=== PATIENT | male | born 1960 | race Caucasian/White ===

== ENCOUNTER 2019-02-17 09:17 | Emergency (ER) | payer OTHER ==
[2019-02-17] MEDS ORDERED: ALBUTEROL NEBULIZED 2.5 MG/3 ML INHALATION STA (09:35)
--- NOTE | 2019-02-17 09:38 | ED ---
Chest Pain HPI - General Chief Complaint: Chest Pain Stated Complaint: [facility] - chemical exposure Time Seen by Provider: 02/17/19 09:28 Source: patient, RN notes reviewed Mode of arrival: ambulatory Limitations: no limitations - History of Present Illness Initial Comments: This a 58-year-old male presents emergency Department with chief complaint of chest pain or shortness of breath. Patient states symptoms started 2 days ago in which he associates this with inhalation of dust at work. He states at that time he did have some onset of chest discomfort as he drove to an area [place]. Patient states that that the symptoms have persisted and worsened and which she has more discomfort. Patient states pains and left side of his chest that radiates into his left axilla region. Patient states that he is nonproductive and regular basis he does take omeprazole for GERD denies any history of hypertension, hyperlipidemia, diabetes or prior cardiac disease. Patient states that he can press on his chest and reproduce discomfort. Patient denies any nausea vomiting diarrhea constipation. Denies any fevers or chills. Denies productive cough. - Related Data Home Medications Medication Instructions Recorded Confirmed Omeprazole [PriLOSEC] 20 mg PO AC-BRKFST 02/17/19 02/17/19 Previous Rx's Medication Instructions Recorded Albuterol Sulfate [Proair Hfa] 1 - 2 puff INHALATION Q4HR PRN #1 02/17/19 inhaler predniSONE 50 mg PO DAILY #4 tab 02/17/19 Allergies Allergy/AdvReac Type Severity Reaction Status Date / Time No Known Allergies Allergy Verified 02/17/19 09:59 Review of Systems ROS Statement: Those systems with pertinent positive or pertinent negative responses have been documented in the HPI. ROS Other: All systems not noted in ROS Statement are negative. EKG Findings - EKG Comments: EKG Findings:: EKG performed at 9:39 normal sinus rhythm with a rate of 67 TN 160 QRS 78 QT/QTc/431 Past Medical History Past Medical History: GERD/Reflux History of Any Multi-Drug Resistant Organisms: None Reported Past Surgical History: Tonsillectomy Additional Past Surgical History / Comment(s): SINUS SURGERY Past Psychological History: No Psychological Hx Reported Smoking Status: Never smoker Past Alcohol Use History: None Reported Past Drug Use History: None Reported General Exam Limitations: no limitations General appearance: alert, in no apparent distress Head exam: Present: atraumatic, normocephalic, normal inspection Eye exam: Present: normal appearance, PERRL, EOMI. Absent: scleral icterus, conjunctival injection, periorbital swelling ENT exam: Present: normal exam, mucous membranes moist Neck exam: Present: normal inspection, full ROM. Absent: tenderness, meningismus, lymphadenopathy Respiratory exam: Present: wheezes (faint expiratory wheeze). Absent: normal lung sounds bilaterally, respiratory distress, rales, rhonchi, stridor Cardiovascular Exam: Present: regular rate, normal rhythm, normal heart sounds. Absent: systolic murmur, diastolic murmur, rubs, gallop, clicks Neurological exam: Present: alert Skin exam: Present: warm, dry, intact, normal color. Absent: rash Course Vital Signs 02/17/19 02/17/19 02/17/19 09:21 10:03 10:25 Temperature 98.4 F Pulse Rate 65 60 Respiratory 16 16 Rate Blood Pressure 188/99 O2 Sat by Pulse 100 Oximetry 02/17/19 02/17/19 10:36 11:13 Temperature Pulse Rate 70 76 Respiratory 15 Rate Blood Pressure 163/80 O2 Sat by Pulse 100 Oximetry Chest Pain MDM - MDM 58-year-old male present emergency from for chest pain shortness of breath. Patient lab work, EKG, chest x-ray. Patient was given albuterol treatment which improved his symptoms. Patient symptoms started after inhaling dust at work. This is felt to be related to chemical or airborne exposure. Patient will be discharged with pro-air inhaler and prednisone. Patient follow-up with [facility] and return for any worsening symptoms. Disposition Clinical Impression: Atypical chest pain, Bronchospasm Disposition: HOME SELF-CARE Condition: Stable Instructions (If sedation given, give patient instructions): Bronchospasm (ED) Additional Instructions: Please return to the Emergency Department if symptoms worsen or any other concerns. Prescriptions: predniSONE 50 mg PO DAILY #4 tab Albuterol Sulfate [Proair Hfa] 1 - 2 puff INHALATION Q4HR PRN #1 inhaler PRN Reason: difficulty in breathing Is patient prescribed a controlled substance at d/c from ED?: No Referrals: Yong Brink MD [Primary Care Provider] - 1-2 days Time of Disposition: 11:47
[2019-02-17 10:32] LABS: Basophils % (A) 1 %; Eosinophils # (A) 0.2 k/uL (0-0.7); Eosinophils % (A) 4 %; HCT 47.5 % (39.0-53.0); HGB 15.5 gm/dL (13.0-17.5); Lymphocytes # (A) 1.4 k/uL (1.0-4.8); Lymphocytes % (A) 27 %; MCH 30.6 pg (25.0-35.0); MCHC 32.5 g/dL (31.0-37.0); Mean Platelet Volume 7.2; Monocytes # (A) 0.3 k/uL (0-1.0); Monocytes % (A) 6 %; Neutrophils % (A) 60 %; Platelet Count 194 k/uL (150-450); RBC 5.06 m/uL (4.30-5.90); RDW 12.6 % (11.5-15.5); WBC 5.1 k/uL (3.8-10.6)
--- NOTE | 2019-02-17 10:43 | XR ---
EXAMINATION TYPE: XR chest 2V DATE OF EXAM: 02/17/2019 COMPARISON: NONE HISTORY: Chest pain and shortness of breath TECHNIQUE: Frontal and lateral views of the chest are obtained. FINDINGS: There are overlying cardiac leads. There is no focal air space opacity, pleural effusion, o r pneumothorax seen. The cardiac silhouette size is within normal limits. The osseous structures a re intact. IMPRESSION: No acute cardiopulmonary process.
[2019-02-17 10:44] LABS: ALT 35 U/L (21-72); AST 22 U/L (17-59); Albumin 4.4 g/dL (3.5-5.0); Alkaline Phosphatase 51 U/L (38-126); Anion Gap 7 mmol/L; Blood Urea Nitrogen 15 mg/dL (9-20); Calcium 9.8 mg/dL (8.4-10.2); Carbon Dioxide 28 mmol/L (22-30); Chloride 106 mmol/L (98-107); Glucose 87 mg/dL (74-99); Magnesium 2.1 mg/dL (1.6-2.3); Potassium 4.2 mmol/L (3.5-5.1); Sodium 141 mmol/L (137-145); Total Bilirubin 0.7 mg/dL (0.2-1.3); Total Protein 7.1 g/dL (6.3-8.2)
[2019-02-17 10:47] LABS: D-Dimer 0.39 mg/L FEU (<0.60); Partial Thromboplastin Time 24.4 sec (22.0-30.0); Prothrombin Time 10.3 sec (9.0-12.0)
[2019-02-17] MEDS ORDERED: methylPREDNISolone SOD SUCCI 125 MG/2 ML VIAL IV STA (11:44)
[2019-02-17] MEDS ORDERED: METOPROLOL TARTRATE 5 MG/5 ML VIAL IVP STA (12:03)
[2019-02-17 12:15] VITALS: BP 150/75; PULSE 65; RESP 16; TEMP 98.2
== END 2019-02-17 11:58 | disposition home or self-care (01) ==
LOC: EC 09:17
DX: J98.01 Acute bronchospasm (principal); K21.9 Gastro-esophageal reflux disease without esophagitis; Z79.899 Other long term (current) drug therapy; Z77.098 Contact with and (suspected) exposure to other hazardous, chiefly nonmedicinal, chemicals; X58.XXXA Exposure to other specified factors, initial encounter; Y92.69 Other specified industrial and construction area as the place of occurrence of the external cause; Y99.0 Civilian activity done for income or pay
CPT/HCPCS: 36415; 94640; 93005; 85379; 80053; 83735; 84484; 85025; 85610; 85730; 71046; 99284; 96374; J2930

== ENCOUNTER 2019-02-19 10:51 | Observation (INO) | payer OTHER ==
[2019-02-19 11:26] LABS: Basophils % (A) 0 %; Eosinophils % (A) 1 %; HCT 45.5 % (39.0-53.0); HGB 14.8 gm/dL (13.0-17.5); Lymphocytes # (A) 0.8 k/uL (1.0-4.8); Lymphocytes % (A) 12 %; MCHC 32.4 g/dL (31.0-37.0); MCV 92.6 fL (80.0-100.0); Mean Platelet Volume 7.3; Monocytes # (A) 0.1 k/uL (0-1.0); Monocytes % (A) 2 %; Neutrophils # (A) 5.1 k/uL (1.3-7.7); Neutrophils % (A) 84 %; Platelet Count 176 k/uL (150-450); RBC 4.91 m/uL (4.30-5.90); RDW 12.6 % (11.5-15.5); WBC 6.1 k/uL (3.8-10.6)
[2019-02-19 11:29] LABS: Albumin 4.6 g/dL (3.5-5.0); Anion Gap 8 mmol/L; Blood Urea Nitrogen 24 mg/dL (9-20); Calcium 9.9 mg/dL (8.4-10.2); Carbon Dioxide 25 mmol/L (22-30); Chloride 108 mmol/L (98-107); Glucose 132 mg/dL (74-99); Sodium 141 mmol/L (137-145); Total Bilirubin 0.6 mg/dL (0.2-1.3); Total Protein 7.4 g/dL (6.3-8.2)
[2019-02-19 11:30] LABS: ALT 37 U/L (21-72); AST 39 U/L (17-59); Alkaline Phosphatase 44 U/L (38-126); Magnesium 2.2 mg/dL (1.6-2.3); Potassium 4.6 mmol/L (3.5-5.1)
--- NOTE | 2019-02-19 11:46 | ED ---
General Adult HPI - General Chief complaint: Chest Pain Stated complaint: CHEST PAIN Time Seen by Provider: 02/19/19 10:53 Source: patient, EMS, RN notes reviewed, old records reviewed Mode of arrival: EMS Limitations: no limitations - History of Present Illness Initial comments: 58-year-old male presenting with left-sided chest pain. Patient has had i ntermittent chest pain dyspnea over the past one week. Symptoms initially began after inhalation of an unknown dust at work. He had some cough associated with this. He was diagnosed with bronchospasm treated with albuterol and steroids. Today he developed worsening left-sided chest pain. Pain did radiate into the left arm. He has no known history of coronary artery disease. He does report p ersistent dyspnea over the course of the past 5 days. No vomiting or diarrhea. - Related Data Home Medications Medication Instructions Recorded Confirmed Omeprazole [PriLOSEC] 20 mg PO AC-BRKFST 02/17/19 02/19/19 Albuterol Sulfate [Proair Hfa] 1 - 2 puff INHALATION RT-Q4H PRN 02/19/19 02/19/19 Previous Rx's Medication Instructions Recorded predniSONE 50 mg PO DAILY #4 tab 02/17/19 Allergies Allergy/AdvReac Type Severity Reaction Status Date / Time No Known Allergies Allergy Verified 02/19/19 11:59 Review of Systems ROS Statement: Those systems with pertinent positive or pertinent negative responses have been documented in the HPI. ROS Other: All systems not noted in ROS Statement are negative. Past Medical History Past Medical History: GERD/Reflux History of Any Multi-Drug Resistant Organisms: None Reported Past Surgical History: Tonsillectomy Additional Past Surgical History / Comment(s): SINUS SURGERY Past Psychological History: No Psychological Hx Reported Smoking Status: Never smoker Past Alcohol Use History: None Reported Past Drug Use History: None Reported General Exam Limitations: no limitations General appearance: alert, in no apparent distress Head exam: Present: atraumatic, normocephalic Eye exam: Present: normal appearance, PERRL ENT exam: Present: normal exam Neck exam: Present: normal inspection. Absent: tenderness, meningismus Respiratory exam: Present: normal lung sounds bilaterally. Absent: respiratory distress, wheezes, rales, rhonchi Cardiovascular Exam: Present: regular rate, normal rhythm GI/Abdominal exam: Present: soft. Absent: distended, tenderness Extremities exam: Present: normal inspection, normal capillary refill. Absent: pedal edema, calf tenderness Neurological exam: Present: alert, oriented X3, CN II-XII intact. Absent: motor sensory deficit Psychiatric exam: Present: normal affect, normal mood Skin exam: Present: warm, dry, intact Course Vital Signs 02/19/19 10:53 Temperature 98.1 F Pulse Rate 68 Respiratory 16 Rate Blood Pressure 172/115 O2 Sat by Pulse 97 Oximetry EKG Findings - EKG Comments: EKG Findings:: EKG: Normal sinus rhythm, rate of 68, NV interval 174, QRS duration 72, QTC 423, no ST segment elevation or depression. Medical Decision Making - Medical Decision Making 58 yo male presenting for reevaluation of chest pain and dyspnea. Initial presentation was consistent with reactive airway disease secondary to inhalation of dust. However symptoms have progressed despite treatment with albuterol and prednisone. He has some typical features of left-sided chest pain. EKG is nonischemic. Chest x-rays negative for acute cardiopulmonary disease. Patient has negative d-dimer, negative troponin. He has a normal CBC. He will be kept in observation for serial cardiac enzymes, telemetry, and cardiology consultation. - Lab Data Result diagrams: 02/19/19 11:09 02/19/19 11:09 Lab Results 02/19/19 02/19/19 02/19/19 Range/Units 11:09 11:09 11:09 WBC 6.1 (3.8-10.6) k/uL RBC 4.91 (4.30-5.90) m/uL Hgb 14.8 (13.0-17.5) gm/dL Hct 45.5 (39.0-53.0) % MCV 92.6 (80.0-100.0) fL MCH 30.0 (25.0-35.0) pg MCHC 32.4 (31.0-37.0) g/dL RDW 12.6 (11.5-15.5) % Plt Count 176 (150-450) k/uL Neutrophils % 84 % Lymphocytes % 12 % Monocytes % 2 % Eosinophils % 1 % Basophils % 0 % Neutrophils # 5.1 (1.3-7.7) k/uL Lymphocytes # 0.8 L (1.0-4.8) k/uL Monocytes # 0.1 (0-1.0) k/uL Eosinophils # 0.0 (0-0.7) k/uL Basophils # 0.0 (0-0.2) k/uL PT (9.0-12.0) sec INR (<1.2) APTT (22.0-30.0) sec D-Dimer (<0.60) mg/L FEU Sodium 141 (137-145) mmol/L Potassium 4.6 (3.5-5.1) mmol/L Chloride 108 H (98-107) mmol/L Carbon Dioxide 25 (22-30) mmol/L Anion Gap 8 mmol/L BUN 24 H (9-20) mg/dL Creatinine 0.92 (0.66-1.25) mg/dL Est GFR (CKD-EPI)AfAm >90 (>60 ml/min/1.73 sqM) Est GFR (CKD-EPI)NonAf >90 (>60 ml/min/1.73 sqM) Glucose 132 H (74-99) mg/dL Calcium 9.9 (8.4-10.2) mg/dL Magnesium 2.2 (1.6-2.3) mg/dL Total Bilirubin 0.6 (0.2-1.3) mg/dL AST 39 (17-59) U/L ALT 37 (21-72) U/L Alkaline Phosphatase 44 (38-126) U/L Troponin I (0.000-0.034) ng/mL NT-Pro-B Natriuret Pep 127 pg/mL Total Protein 7.4 (6.3-8.2) g/dL Albumin 4.6 (3.5-5.0) g/dL 02/19/19 02/19/19 Range/Units 11:09 11:09 WBC (3.8-10.6) k/uL RBC (4.30-5.90) m/uL Hgb (13.0-17.5) gm/dL Hct (39.0-53.0) % MCV (80.0-100.0) fL MCH (25.0-35.0) pg MCHC (31.0-37.0) g/dL RDW (11.5-15.5) % Plt Count (150-450) k/uL Neutrophils % % Lymphocytes % % Monocytes % % Eosinophils % % Basophils % % Neutrophils # (1.3-7.7) k/uL Lymphocytes # (1.0-4.8) k/uL Monocytes # (0-1.0) k/uL Eosinophils # (0-0.7) k/uL Basophils # (0-0.2) k/uL PT 10.5 (9.0-12.0) sec INR 1.0 (<1.2) APTT 23.2 (22.0-30.0) sec D-Dimer 0.30 (<0.60) mg/L FEU Sodium (137-145) mmol/L Potassium (3.5-5.1) mmol/L Chloride (98-107) mmol/L Carbon Dioxide (22-30) mmol/L Anion Gap mmol/L BUN (9-20) mg/dL Creatinine (0.66-1.25) mg/dL Est GFR (CKD-EPI)AfAm (>60 ml/min/1.73 sqM) Est GFR (CKD-EPI)NonAf (>60 ml/min/1.73 sqM) Glucose (74-99) mg/dL Calcium (8.4-10.2) mg/dL Magnesium (1.6-2.3) mg/dL Total Bilirubin (0.2-1.3) mg/dL AST (17-59) U/L ALT (21-72) U/L Alkaline Phosphatase (38-126) U/L Troponin I <0.012 (0.000-0.034) ng/mL NT-Pro-B Natriuret Pep pg/mL Total Protein (6.3-8.2) g/dL Albumin (3.5-5.0) g/dL Disposition Clinical Impression: Chest pain Disposition: ADMITTED IP TO THIS [facility] Condition: Stable Is patient prescribed a controlled substance at d/c from ED?: No Referrals: Yong Brink MD [Primary Care Provider] - 1-2 days Decision to Admit Reason: Admit from EC Decision Date: 02/12/19 Decision Time: 13:51
--- NOTE | 2019-02-19 11:49 | XR ---
EXAMINATION TYPE: XR chest 2V DATE OF EXAM: 02/19/2019 COMPARISON: 02/17/2019 INDICATION: Chest pain short of breath TECHNIQUE: Frontal and lateral views of the chest are obtained. FINDINGS: The heart size is normal. The pulmonary vasculature is normal. The lungs are clear. IMPRESSION: 1. No acute pulmonary process.
[2019-02-19 12:07] LABS: D-Dimer 0.3 mg/L FEU (<0.60); Partial Thromboplastin Time 23.2 sec (22.0-30.0); Prothrombin Time 10.5 sec (9.0-12.0)
[2019-02-19] MEDS ORDERED: ASPIRIN 325 MG TAB PO STA (13:44)
[2019-02-19] MEDS ORDERED: SODIUM CHLORIDE 0.9% 1,000 ML IV SCH (13:45)
[2019-02-19] MEDS ORDERED: ACETAMINOPHEN TAB 325 MG TAB PO PRN (13:45)
[2019-02-19] MEDS ORDERED: ONDANSETRON 4 MG/2 ML VIAL IVP PRN (13:45)
[2019-02-19] MEDS ORDERED: MORPHINE SULFATE 4 MG/ML SYRINGE IV PRN (13:45)
[2019-02-19] MEDS ORDERED: NALOXONE 0.4 MG/ML 1 ML VIAL IV PRN (13:45)
[2019-02-19] MEDS ORDERED: IPRATROPIUM-ALBUTEROL 3 ML NEB INHALATION PRN (13:48)
[2019-02-19] MEDS ORDERED: NITROGLYCERIN SL TABS 0.4 MG TAB SUBLINGUAL PRN (13:48)
[2019-02-19 14:48] VITALS: PULSE 57
[2019-02-19] MEDS ORDERED: predniSONE 50 MG TAB PO SCH (15:00)
[2019-02-19] MEDS ORDERED: ALBUTEROL NEBULIZED 2.5 MG/3 ML INHALATION PRN (15:17)
--- NOTE | 2019-02-19 16:21 | P.DS ---
Providers Date of admission: 02/19/19 13:45 Attending physician: Tana Henriquez Consults: 02/19/19 13:45 Consult Physician Routine Consulting Provider: Jesús Blakely Consult Reason/Comments: CP Do you want consulting provider notified?: Yes Primary care physician: Yong Brink [facility] Course: Please refer to my HPI Patient Condition at Discharge: Stable Plan - Discharge Summary Discharge Rx Participant: No New Discharge Prescriptions: Discontinued Albuterol Sulfate [Proair Hfa] 1 - 2 puff INHALATION RT-Q4H PRN PRN Reason: difficulty in breathing No Action Omeprazole [PriLOSEC] 20 mg PO AC-BRKFST predniSONE 50 mg PO DAILY #4 tab Discharge Medication List Omeprazole [PriLOSEC] 20 mg PO AC-BRKFST 02/17/19 [History] predniSONE 50 mg PO DAILY #4 tab 02/17/19 [Rx] Follow up Appointment(s)/Referral(s): Yong Brink MD [Primary Care Provider] - 3 Days Vern Castro MD [STAFF PHYSICIAN] - 1 Week
--- NOTE | 2019-02-19 16:21 | P.HPIM ---
History of Present Illness Patient is a 58-year-old pleasant gentleman came in with the chest pain predominantly in the epigastric area pressure-like sensation radiating around the chest. And to the axillary area. All of his symptoms started after inhalation of the metallic dust at work. Patient at that time had a bronchospasm was treated with albuterol and steroids and was having cough at that time. Patient denied any fever chills patient chest pain is pressure-like sensation mild no associated diaphoresis lightheadedness chest pain is nonpleuritic not associated with food. EKG sinus rhythm without any acute ST-T wave changes. Troponin is negative we're obtaining second set of troponin that's negative patient will be discharged and we'll obtain an outpatient stress test on Friday Review of Systems REVIEW OF SYSTEMS: CONSTITUTIONAL: No fever, no malaise, no fatigue. HEENT: No recent visual problems or hearing problems. Denied any sore throat. CARDIOVASCULAR: No orthopnea, PND, no palpitations, no syncope. PULMONARY: no hemoptysis. GASTROINTESTINAL: No diarrhea, no nausea, no vomiting, no abdominal pain. NEUROLOGICAL: No headaches, no weakness, no numbness. HEMATOLOGICAL: Denies any bleeding or petechiae. GENITOURINARY: Denies any burning micturition, frequency, or urgency. MUSCULOSKELETAL/RHEUMATOLOGICAL: Denies any joint pain, swelling, or any muscle pain. ENDOCRINE: Denies any polyuria or polydipsia. The rest of the 14-point review of systems is negative. Past Medical History Past Medical History: Asthma, GERD/Reflux Additional Past Medical History / Comment(s): Asthma-exercised induced, narrow esophagus, sinus problems. History of Any Multi-Drug Resistant Organisms: None Reported Past Surgical History: Tonsillectomy Additional Past Surgical History / Comment(s): SINUS SURGERY, EGD, Colonoscopy Past Anesthesia/Blood Transfusion Reactions: No Reported Reaction Smoking Status: Never smoker - Past Family History Father Family Medical History: Cancer Additional Family Medical History / Comment(s): Father had blood cancer. He is . Mother Family Medical History: No Reported History Additional Family Medical History / Comment(s): Mother is living and healthy. Medications and Allergies Home Medications Medication Instructions Recorded Confirmed Type Omeprazole [PriLOSEC] 20 mg PO AC-BRKFST 02/17/19 02/19/19 History predniSONE 50 mg PO DAILY #4 tab 02/17/19 02/19/19 Rx Allergies Allergy/AdvReac Type Severity Reaction Status Date / Time No Known Allergies Allergy Verified 02/19/19 11:59 Physical Exam Vitals: Vital Signs Temp Pulse Pulse Resp BP BP Pulse Ox 02/19/19 14:46 98.1 F 57 L 15 173/91 98 02/19/19 14:05 60 16 152/93 99 02/19/19 10:53 98.1 F 68 16 172/115 97 Intake and Output 02/19/19 02/19/19 02/19/19 06:59 14:59 22:59 Other: Weight 83.915 kg PHYSICAL EXAMINATION: GENERAL: The patient is alert and oriented x3, not in any acute distress. Well developed, well nourished. HEENT: Pupils are round and equally reacting to light. EOMI. No scleral icterus. No conjunctival pallor. Normocephalic, atraumatic. No pharyngeal erythema. No thyromegaly. CARDIOVASCULAR: S1 and S2 present. No murmurs, rubs, or gallops. PULMONARY: Chest is clear to auscultation, no wheezing or crackles. ABDOMEN: Soft, nontender, nondistended, normoactive bowel sounds. No palpable organomegaly. MUSCULOSKELETAL: No joint swelling or deformity. EXTREMITIES: No cyanosis, clubbing, or pedal edema. NEUROLOGICAL: Gross neurological examination did not reveal any focal deficits. SKIN: No rashes. Results CBC & Chem 7: 02/19/19 11:09 02/19/19 11:09 Labs: Abnormal Lab Results - Last 24 Hours (Table) 02/19/19 02/19/19 Range/Units 11:09 11:09 Lymphocytes # 0.8 L (1.0-4.8) k/uL Chloride 108 H (98-107) mmol/L BUN 24 H (9-20) mg/dL Glucose 132 H (74-99) mg/dL Thrombosis Risk Factor Assmnt - Choose All That Apply Any of the Below Risk Factors Present?: Yes Each Factor Represents 1 point: Age 41-60 years Other Risk Factors: No Other congenital or acquired thrombophilia - If yes, enter type in comment: No Thrombosis Risk Factor Assessment Total Risk Factor Score: 1 Thrombosis Risk Factor Assessment Level: Low Risk Assessment and Plan Plan: -Chest pain: We will rule out a concurrent syndromes after that patient will be discharged with outpatient stress test patient's symptomatology is either musculoskeletal or May be related to hiatal hernia he has. Patient evidently has esophageal stricture as well. Outpatient stress echocardiogram will be ordered and after second set of troponin if that is negative and the second EKG was negative patient will be discharged today to follow up with the primary care physician and cardiology as an outpatient and outpatient stress test. -Gastroesophageal reflux disease continue with Prilosec patient is not wheezing today because of which patient may not benefit from any systemic steroids this will be discontinued -Probable asthma, not in acute exacerbation
[2019-02-19 19:24] VITALS: BP 137/73; RESP 16; TEMP 98.2
[2019-02-20] MEDS ORDERED: PANTOPRAZOLE 40 MG TABLET PO SCH (07:30)
[2019-02-20] MEDS ORDERED: ASPIRIN 325 MG TAB PO SCH (09:00)
== END 2019-02-19 20:15 | disposition home or self-care (01) ==
LOC: EC 10:51 → 1SOBS 13:45
PROVIDERS: ADMIT Hospitalist; ATTEND Hospitalist
DX: R07.89 Other chest pain (principal); R06.00 Dyspnea, unspecified; R10.13 Epigastric pain; K21.9 Gastro-esophageal reflux disease without esophagitis; K22.2 Esophageal obstruction; Z57.2 Occupational exposure to dust; Z79.899 Other long term (current) drug therapy; Z80.8 Family history of malignant neoplasm of other organs or systems
CPT/HCPCS: 99285; 36415; 93005; 85379; 83880; 80053; 83735; 84484; 85025; 85610; 85730; 71046; G0378

== ENCOUNTER → 2019-05-28 | Outpatient (CLI) | payer BC ==
--- NOTE | 2019-05-28 17:12 | CT ---
EXAMINATION TYPE: CT chest wo con DATE OF EXAM: 05/28/2019 COMPARISON: None HISTORY: Shortness of breath and cough. CT DLP: 455 mGycm, Automated exposure control for dose reduction was used. CONTRAST: Performed injected with 0 mL of Isovue 300. TECHNIQUE: Axial images were obtained at 5 mm thick sections. Reconstructed images are reviewed on [employer] computer in the coronal plane. FINDINGS: Portion of the thyroid visualized is normal. No suspicious lung nodules or focal infiltrates are present. No enlarged mediastinal or hilar adenopathy is evident. The ascending aorta diameter at the level o f the main pulmonary artery is 3.4 cm. The main pulmonary artery diameter at the bifurcation is 3.[address] sections are obtained through the upper abdomen. Abdomen is essentially unremarkable. IMPRESSIONS: 1. No acute pulmonary process.
== END ==
LOC: RADCTMAIN 14:32
PROVIDERS: ATTEND Internal Medicine Critical Care Medicine
DX: R05 Cough (principal)
CPT/HCPCS: 71250